=== PATIENT | male | born 2000 | race Caucasian/White ===

== ENCOUNTER 2022-02-02 01:00 | Emergency (ER) | payer OTHER, SELFPAY ==
[2022-02-02 01:06] VITALS: BP 155/93; PULSE 95; RESP 16; TEMP 37; O2SAT 100; BMI 21.2
--- NOTE | 2022-02-02 01:36 | W.ED.WOUNDLC ---
HPI - Wound/Laceration General: Chief Complaint: Wound/Laceration Stated Complaint: thumb lac Time Seen by Provider: 02/02/22 01:12 Source: patient Mode of arrival: ambulatory Limitations: no limitations History of Present Illness: Patient presents to the emergency department today for evaluation treatment of L shaped laceration to the left first and second finger webspace. Patient states he was opening a beer bottle and was trying to use a knife to remove the top when the knife slipped and impacted his hand. Bleeding has been well controlled. Patient reports he is up-to-date on his tetanus immunizations. Review of Systems General: Reports: 10 or more systems reviewed and unremarkable except in HPI and below Physical Exam Narrative: EXAM NARRATIVE: Patient has an L-shaped laceration to the palmar aspect of the webspace between the first and second digits of the left hand. There is no active bleeding. It is approximately 0.75 to 1 cm in total length. Appears to be somewhat of a flap . Patient has preserved range of motion to the thumb and the index finger. Patient is neurovascularly intact. Const: COMMON NORMALS: no acute distress, average body habitus and patient oriented x3 HENMT: COMMON NORMALS: normocephalic, atraumatic, hearing grossly normal bilaterally, Normal external nose present and moist oral mucous membranes HEAD & SCALP: normocephalic and atraumatic NOSE: Normal external nose present Eye: COMMON NORMALS: Equal, round and reactive pupils present, EOMs intact bilaterally and conjunctivae normal CONJUNCTIVA: Yes conjunctivae normal PUPIL: Yes Equal, round and reactive pupils present Neck/C-Spine: COMMON NORMALS: no JVD Lymph: LYMPHATIC: no lymphadenopathy noted Resp: COMMON NORMALS: normal respiratory effort, No retractions and No use of accessory muscles Cardio: COMMON NORMALS: no JVD, regular rate and regular rhythm RATE: regular rate RHYTHM: regular rhythm GI: COMMON NORMALS: Normal to inspection, nondistended, normoactive bowel sounds present : COMMON NORMALS: Yes no CVA tenderness BLADDER/KIDNEY EXAM: Yes no CVA tenderness Back/Pelvis: COMMON NORMALS: no CVA tenderness and thoraco-lumbar ROM normal Extremity: COMMON NORMALS: normal to inspection, full ROM and capillary refill normal Neuro: COMMON NORMALS: patient oriented x3 Psych: COMMON NORMALS: mental status grossly normal, Normal thought process present, cooperative, normal affect and activity/motor behavior normal THOUGHT PROCESS: Normal thought process present Skin: COMMON NORMALS: negative for no wounds Procedures Laceration Laceration 1: Site: hand Side (If applicable): left (webspace and base of thumb) Size (cm): 1 Description: flap and clean Depth: simple, single layer Local Anesthetic: lidocaine 1% (3 cc) Amount of anesthesia used (mL): 3 Pre-repair: wound explored Skin layer closed with: nylon Size (cm): 4-0 Number of sutures: 4 Technique: simple, interrupted Course Vital Signs: Vital signs: Vital Signs Temperature 98.6 F 02/02/22 01:06 Pulse Rate 95 02/02/22 01:06 Respiratory Rate 16 02/02/22 01:06 Blood Pressure 155/93 02/02/22 01:06 Pulse Oximetry 100 02/02/22 01:06 MDM - Wound/Laceration Medical Decision Making Patient presented to the emergency department today with a laceration sustained to the webspace between the thumb and index finger on the left hand primarily noted towards the base of the thumb. There was no active bleeding. Once patient's wound was anesthetized, it did show more of a V shape and flap type injury. Patient was able to tolerate deep scrubbing with chlorhexidine and rinsing with sterile saline. There were no signs of retained material or contamination. Patient's wound was easily repaired with 4, 4-0 nylon sutures in a simple interrupted fashion. Wound was covered with Telfa and Coban for protection. Discussed with patient his daily wound cleaning routine and encouraged continued placement of bandaging to prevent snagging and soiling of his wound. No overt signs of wound infection for which she would need to be seen and reevaluated. Patient was told to have the sutures removed in 10 days at either his primary care doctor's office, urgent care, or back here in the emergency room. If he has any concerns for signs of infection he is to be seen and reevaluated. Patient reports his tetanus immunization was already up-to-date. Differential Diagnosis Likely laceration (retained FB, vascular laceration, tendon laceration), abrasion and avulsion of skin Discharge Plan Discharge Patient Disposition: Home Clinical Impression: Laceration of hand, left Qualifiers: Encounter type: initial encounter Foreign body presence: without foreign body Qualified Code(s): S61.412A - Laceration without foreign body of left hand, initial encounter Condition: Stable Discharge Orders: Discharge ED (Routine); Ordered 02/02/22 Ordered By: Radha Gonzalez Referrals: [facility] [Family Provider] - Discharge Activity: Limit activity as instructed Patient Instructions: Laceration, Care For Your Stitches (ED) Activity Restrictions/Additional Instructions: Your wound was able to be anesthetized, cleaned, and repaired here in the emergency department. You received 4 nonabsorbable sutures which need to be removed at a medical facility in 10 days. Until then, we recommend at least once a day washing the area with warm water and a mild soap. Due to its location, there is a high risk for snagging of the sutures on various items so, we do recommend keeping it covered with bandaging. If your hands or bandaging becomes wet or soiled we do recommend performing wound care and a bandage changes soon as possible. You can put a topical antibiotic ointment on it the first couple days however, I do not recommend placing it on your wound consistently as this keeps the wound edges soft and prevents good wound edge approximation and adherence. If anytime the wound becomes suddenly red, swollen, or drains a thick green or yellow material you need to be seen and reevaluated. Thank you! Stand Alone Forms: Work/School Release Coding Level of Care Code ED [employer] for [employer] Fwd Exam Comprehensive
[2022-02-02] MEDS: lidocaine 1% INJ 20 mL MDV (mL) 3 ML INTRADERMA (02:00)
== END 2022-02-02 02:40 | disposition home or self-care (01) ==
PROVIDERS: Emergency Provider Physician Assistant; Family Provider Nurse Practitioner Family
DX: S61.412A Laceration without foreign body of left hand, initial encounter (principal); W26.0XXA Contact with knife, initial encounter
CPT/HCPCS: 12001; 99282